=== PATIENT | female | born 1970 | race Caucasian/White ===

== ENCOUNTER 2021-12-21 08:28 | Observation (INO) | payer BC ==
[~2021-12-21] VITALS: Ht 160 cm; Wt 65.0 kg
--- NOTE | 2021-12-21 08:52 | NUR ---
PT ESCORTED VIA EMS STRETCHER. $76 FELL OUT OF PT BRA AND WAS PLACED IN PT BAG AND COUNTED AND VERIFIED IN FRONT OF PATIENT AND NURSES X 3
[2021-12-21 09:01] LABS: HEMATOCRIT 37.2 % (37.0-47.0); HEMOGLOBIN 12.3 g/dl (12.0-16.0); IMMATURE GRANULOCYTES 0.2 % (0.0-5.0); MEAN CELL VOLUME 92.8 fL CALC (80.0-100.0); MEAN CORPUSCULAR HGB 30.7 pG CALC (26.0-32.0); MEAN CORPUSCULAR HGB CONC 33.1 g/dL CAL (32.0-36.0); NEUT# 14.41 thou/uL (2.00-7.15); RED BLOOD COUNT 4.01 mill/uL (4.20-5.60); RED CELL DISTRI WIDTH 13.2 % (11.5-15.5)
[2021-12-21 09:07] LABS: URINE BILIRUBIN - DIPSTICK NEGATIVE (NEGATIVE); URINE BLOOD DIPSTICK SMALL (NEGATIVE); URINE COLOR YELLOW; URINE GLUCOSE - DIPSTICK NEGATIVE (NEGATIVE); URINE KETONE NEGATIVE (NEGATIVE); URINE LEUK ESTERASE NEGATIVE (NEGATIVE); URINE PROTEIN - DIPSTICK NEGATIVE (NEG-TRACE); URINE SPECIFIC GRAVITY >=1.030; URINE UROBILINOGEN - DIPSTICK 0.2 E.U./dL (0.2)
[2021-12-21 09:10] LABS: URINE NITRITE - DIPSTICK NEGATIVE (Negative)
--- NOTE | 2021-12-21 09:10 | NUR ---
SPOKE WITH ARTIS FROM POISON CONTROL WHO RECOMMENDS SYMPTOMATIC SUPPORTIVE CARE FOR POSSIBLE CAFFEINE TABLET OVERDOSE. RECOMMENDS HYDRATION AND BENODIZEPINES FOR AGITATION AND RESTLESSNESS. STATES COULD HAVE GI SX, NAUSEA AND VOMITING WELL. EDP INFORMED.
[2021-12-21 09:16] LABS: URINE SQUAMOUS EPITHELIAL CELL FEW EPI/hpf (0-FEW)
[2021-12-21 09:21] LABS: ALBUMIN 4.7 g/dL (3.2-5.0); ALKALINE PHOSPHATASE 142 u/l (38-126); AMYLASE 61 u/l (30-110); ANION GAP 17 (6-22 (CALC)); BILIRUBIN, TOTAL 0.7 mg/dL (0.0-1.4); BUN 18 mg/dL (7-17); BUN/CREATININE RATIO 23 (12-20 (CALC)); CARBON DIOXIDE 21 mmol/l (22-30); CHLORIDE 111 mmol/l (95-108); CPK 1188 u/l (30-165); CREATININE 0.8 mg/dL (0.5-1.0); ETHYL ALCOHOL 0 mg/dl (0-30); GFR > 60 ML/MIN (>=60 (CALC)); GFR FOR AFR.AMER. > 60 ML/MIN (>=60 (CALC)); LIPASE 24 u/l (23-300); MAGNESIUM 2.2 mg/dL (1.6-2.3); POTASSIUM 3.8 mmol/l (3.5-5.1); SGOT/AST 40 u/l (14-36); SODIUM 146 mmol/l (137-146); TOTAL PROTEIN 8.2 g/dL (6.3-8.2)
[2021-12-21 09:22] LABS: ACT PARTIAL THROMBO TIME 20.5 SECONDS (20.0-32.5); PROTHROMBIN TIME 10.7 SECONDS (9.0-12.5)
--- NOTE | 2021-12-21 09:28 | NUR ---
LILIANA STUDS PLACED IN LAB BAG WITH PTS MONEY. DAUGHTER IN LAW AT BEDSIDE AWARE OF PATIENT BELONGINGS.
[2021-12-21 09:50] LABS: TSH, 3RD GENERATION 0.26 uIU/mL (0.47 - 4.68)
[2021-12-21] MEDS ORDERED: SUMATRIPTAN25 MG PO ×2 (09:58→09:59)
[2021-12-21] MEDS ORDERED: CAFFEINE PO (10:00)
--- NOTE | 2021-12-21 10:59 | NUR ---
PT TO CT AT THIS TIME.
--- NOTE | 2021-12-21 11:39 | NUR ---
PT REPORT CALLED AND PT TRANSPORTED TO [facility] VIA STRETCHER
[2021-12-21 12:00] VITALS: BP 124/74
--- NOTE | 2021-12-21 12:05 | NUR ---
PT ARRIVED TO THE FLOOR VIA STRETCHER AND ONE PERSON ASSISTANCE FROM THE ER. PT IS CONFUSED AND HAVING VISUAL HALLUCINATIONS. BELIEVES THAT THE ROOM IS "BUGGED" PT SAFELY ASSISTED TO THE BED. FAMILY AT , FOR ADDITIONAL HISTORY INFORMATION. FAMILY WANTING TO STAY WITH PATIENT. OPERATING ROOM TECHNOLOGIST AWARE AND AGREABLE. VSS. BED ALARM ON. UNABLE TO ORIENT ROOM, SITTER AVAILABLE TO SIT WITH PATIENT. ASSESSMENT PREFORMED
[2021-12-21 15:50] VITALS: BP 128/73
--- NOTE | 2021-12-21 15:50 | NUR ---
PT AWAKE AND CONFUSED, EASILY RE-DIRECTED. EXTREMELY IMPULSIVE. SITTER AT BS. BED ALARM ON. IV ABX THERAPY INFUSING AT THIS TIME.
--- NOTE | 2021-12-21 16:45 | NUR ---
ARTIS FROM POISON CONTROL ON THE PHONE AT THIS TIME. LABS, VS AND POC REVIEWED FOR PATIENT. ADDED TYLENOL LEVEL FROM PRIOR LABS. NO OTHER CHANGES MADE TO POC. STATES WILL CALL BACK IN AM FOR UPDATE OF PT'S STATUS.
[2021-12-21 19:35] VITALS: BP 121/76
--- NOTE | 2021-12-21 19:35 | NUR ---
PATIENT RESTING IN BED. VS DONE. PATIENT KEPT MOVING ARMS AROUND. DROWSY. ASSESSMENT COMPLETE BEST COULD BE DONE. PATIENT UNABLE TO FOLLOW COMMANDS. BED ALARM ACTIVE FOR PATIENT SAFETY. IVF REMAIN RUNNING. BED IN LOW POSITION. CALL LIGHT IN REACH.
[2021-12-21 23:50] VITALS: BP 112/69
--- NOTE | 2021-12-21 23:50 | NUR ---
PATIENT MAKING COMMENTS THAT DO NOT MAKE SENSE. PATIENT REQUESTED PAIN MEDICATION. PATIENT AMBULATED TO BS AND VOIDED 300CC. PATIENT AMBULATED BACK TO BED. CALL LIGHT IN REACH. BED ALARM ACTIVE.
[2021-12-22 03:20] VITALS: BP 117/65
--- NOTE | 2021-12-22 03:20 | NUR ---
PATIENT LAYING IN BED. NO SIGNS OF DISTRESS NOTED. CALL LIGHT AND BELONGINGS REMAIN IN REACH. BED ALARM REMAINS ACTIVE.
--- NOTE | 2021-12-22 03:30 | NUR ---
FAMILY CALLED COMPLAINING PATIENT KEEPS CALLING THEM. FAMILY ASKED IF PATIENTS PHONE CAN BE SHUT OFF. ATHLETIC TURF WORKER MADE AWARE AND SPOKE WITH PATIENT.
[2021-12-22 05:22] LABS: MEAN CELL VOLUME 94.8 fL CALC (80.0-100.0); MEAN CORPUSCULAR HGB 30.9 pG CALC (26.0-32.0); MEAN CORPUSCULAR HGB CONC 32.6 g/dL CAL (32.0-36.0); RED BLOOD COUNT 3.27 mill/uL (4.20-5.60); RED CELL DISTRI WIDTH 13.5 % (11.5-15.5)
[2021-12-22 05:23] LABS: HEMOGLOBIN 10.1 g/dl (12.0-16.0)
[2021-12-22 05:34] LABS: ALKALINE PHOSPHATASE 85 u/l (38-126); BUN 13 mg/dL (7-17); BUN/CREATININE RATIO 23 (12-20 (CALC)); CARBON DIOXIDE 20 mmol/l (22-30); CHLORIDE 109 mmol/l (95-108); CREATININE 0.5 mg/dL (0.5-1.0); GFR > 60 ML/MIN (>=60 (CALC)); GFR FOR AFR.AMER. > 60 ML/MIN (>=60 (CALC)); MAGNESIUM 2.1 mg/dL (1.6-2.3); POTASSIUM 3.1 mmol/l (3.5-5.1)
[2021-12-22 05:37] LABS: ANION GAP 10 (6-22 (CALC)); BILIRUBIN, TOTAL 1.1 mg/dL (0.0-1.4); SGOT/AST 166 u/l (14-36); SODIUM 136 mmol/l (137-146); TOTAL PROTEIN 5.4 g/dL (6.3-8.2)
--- NOTE | 2021-12-22 07:20 | NUR ---
PT ANXIOUS AND DEMANDING TO GO HOME NOW, STATING SHE HAS HER RIGHT TO MAKE HER OWN DECISION AND SHE WANTS TO CHECK HERSELF OUT NOW. SHE IS ATTEMPTING TO AMBULATE IN HALLWAYS AT THIS TIME AND INFORMED OF PROTOCOL BUT INSISTING, SHE WAS INFORMED NURSE WILL HAVE SECURITY COME TO UNIT TO INTERCEDE IF SHE DOES NOT COMPLY, SHE EVENTUALLY STEPPED BACK IN HER ROOM WHEN SHOWN THE BORDER IN WHICH SHE CAN AMBULATE. SHE IS ALERT AND ORIENTED BUT VERY ANXIOUS, WILL CONTINUE TO MONITOR.
--- NOTE | 2021-12-22 07:28 | NUR ---
Patient is screened for intervention and she may benefit from PT consult if MD agrees
--- NOTE | 2021-12-22 07:56 | NUR ---
Patient decides to leave AMA. Multiple attempts made to ecourage patient to remain here for continued treatment. Explained to patient all risks of leaving against medical advice including . Pt verbalized understanding of all risks. Pt also encouraged to return to [facility] at any time, especially if symptoms continue or become worse. Pt verbalized understanding.
== END 2021-12-22 07:55 | disposition left against medical advice (07) | DRG 71 ==
LOC: ED 08:28 → ED-I 09:54 → ED 10:05 → MS2 10:06
PROVIDERS: ADMIT Internal Medicine; ATTEND Internal Medicine
DX: G93.40 Encephalopathy, unspecified (principal); M62.82 Rhabdomyolysis; E86.0 Dehydration; F10.10 Alcohol abuse, uncomplicated; D72.829 Elevated white blood cell count, unspecified; F22 Delusional disorders; R19.7 Diarrhea, unspecified; S00.93XA Contusion of unspecified part of head, initial encounter; S80.02XA Contusion of left knee, initial encounter; S80.01XA Contusion of right knee, initial encounter; W19.XXXA Unspecified fall, initial encounter; Y92.009 Unspecified place in unspecified non-institutional (private) residence as the place of occurrence of the external cause; Z20.822 Contact with and (suspected) exposure to COVID-19
CPT/HCPCS: G0378; J1650; J2060